=== PATIENT | male | born 1955 | race Hispanic/Latino ===

== ENCOUNTER 2016-07-30 06:43 | Observation (INO) | payer OTHER ==
[2016-07-30] MEDS ORDERED: ECOTRIN PO ONE (07:10)
[2016-07-30] MEDS ORDERED: NACL 0.9% 500 ML 500 ML IV SCH (08:00)
[2016-07-30 08:17] LABS: Basophils % (Auto) 0.6 % (0.0-1.8); Eosinophils % (Auto) 1.5 % (0.0-4.3); Hematocrit 45.3 % (35.5-45.6); Hemoglobin 15.2 gm/dl (11.8-15.2); Mean Corpuscular HGB Conc 34 % (32-34); Mean Corpuscular Hemoglobin 30 pg (28-32); Mean Corpuscular Volume 90 fl (84-94); Platelet Count 262 K/mm3 (140-440); Red Blood Count 5.03 M/mm3 (3.65-5.03); Red Cell Distribution Width 13.5 % (13.2-15.2); White Blood Count 11.1 K/mm3 (4.5-11.0)
[2016-07-30 08:57] LABS: Anion Gap 18 mmol/L; BUN/Creatinine Ratio 14.44; Blood Urea Nitrogen 13 mg/dL (9-20); Calcium 9.7 mg/dL (8.4-10.2); Carbon Dioxide 27 mmol/L (22-30); Chloride 100.5 mmol/L (98-107); Glucose 138 mg/dL (75-100); Potassium 4.8 mmol/L (3.6-5.0); Sodium 141 mmol/L (137-145)
[2016-07-30 09:41] LABS: INR 1.03 (0.87-1.13)
[2016-07-30] MEDS: XYLOCAINE 2% INFILTRATI ONE ×2 (10:16→10:20)
[2016-07-30] MEDS: VERSED ONE ×3 (10:16→11:07)
[2016-07-30] MEDS: SUBLIMAZE ONE ×3 (10:16→11:08)
[2016-07-30] MEDS: CALAN ONE ×2 (10:17→10:22)
[2016-07-30] MEDS: HEPARIN 10,000 UNITS/10 ML ONE ×2 (10:17→10:22)
[2016-07-30] MEDS: HEPARIN/NS 5000 UNIT/500ML(CATH LAB) 1,000 ML IR ONE ×2 (10:18→10:22)
[2016-07-30] MEDS: NITROGLYCERIN SYRINGE 3 ML ONE ×2 (10:18→10:22)
[2016-07-30] MEDS ORDERED: WATER FOR INJ (PF) 10 ML ONE (10:23)
[2016-07-30] MEDS ORDERED: NACL 0.9% 100 ML ONE (10:23)
[2016-07-30] MEDS: ANGIOMAX IV ONE ×2 (10:33→10:34)
[2016-07-30] MEDS ORDERED: ALUM-MAG HYDROX-SIMETH 200-200-20MG/5ML ONE (11:09)
[2016-07-30] MEDS ORDERED: BRILINTA ONE (11:09)
[2016-07-30] MEDS ORDERED: NACL 0.9% 500 ML 500 ML ONE (11:21)
[2016-07-30] MEDS ORDERED: ULTRAM PO PRN (11:41)
[2016-07-30] MEDS ORDERED: NORCO 5/325 PO PRN (11:41)
[2016-07-30] MEDS ORDERED: TYLENOL PO PRN (11:41)
--- NOTE | 2016-07-30 11:47 | Short Stay Summary ---
Short Stay Documentation Date of service: 07/30/16 - History H&P: obtained from office - Allergies and Medications Current Medications: Allergies No Known Allergies Allergy (Verified 12/10/13 11:36) Home Medications Medication Instructions Recorded Confirmed Last Taken Type Omeprazole [PriLOSEC] 1 cap PO DAILY 12/10/13 07/30/16 07/29/16 History Aspirin EC 81 mg PO DAILY 07/30/16 07/30/16 07/28/16 History Isosorbide Mononitrate [Isosorbide 30 mg PO DAILY 07/30/16 07/30/16 07/29/16 History Mononitrate ER] Lisinopril [Lisinopril] 2.5 mg PO DAILY 07/30/16 07/30/16 07/30/16 History Metformin HCl [Metformin HCl] 500 mg PO BID 07/30/16 07/30/16 07/29/16 History Metoprolol Tartrate [Metoprolol 50 mg PO DAILY 07/30/16 07/30/16 07/30/16 History Tartrate] 50mg Active Medications Acetaminophen (Tylenol) 650 mg PO Q4H PRN PRN Reason: Pain MILD(1-3)/Fever >100.5/PEREIRA Acetaminophen/Hydrocodone Bitart ([place] 5/325) 1 each PO Q6H PRN PRN Reason: Pain, Moderate (4-6) Aspirin (Baby Aspirin) 81 mg PO QDAY LUIS FERNANDO Heparin Sodium (Porcine) (Heparin) 5,000 unit SUB-Q Q8HR LUIS FERNANDO Sodium Chloride (Nacl 0.9% 500 Ml) 500 mls @ 50 mls/hr IV DIRECT LUIS FERNANDO Stop: 07/30/16 17:59 Last Admin: 07/30/16 08:28 Dose: 50 mls/hr Ticagrelor (Brilinta) 90 mg PO BID LUIS FERNANDO Tramadol HCl (Ultram) 50 mg PO Q4H PRN PRN Reason: Pain, Mild (1-3) - Brief post op/procedure progress note Date of procedure: 07/30/16 Pre-op diagnosis: unstable angina Procedure: left heart cath and PCI of LCX - Hospital course Hospital course: The patient is a 60 year old male who is followed by Dr. ELVIE Raymond in the office with a history of CAD s/p PCI in 2002, hypertension, diabetes, hyperlipidemia, tobacco abuse who had been experiencing exertional angina despite beta blockers and nitrates and was thus referred for left heart cath. He presented on 07/30/16 and underwent LHC by Dr. Kyle which revealed left main patent, 70% proximal LAD (calcified), D1 patent, 95% proximal LCX, OM3 stent patent, dominant RCA proximal stent patent, mid 40-50%, distal stent patent. He underwent PCI of proximal circumflex lesion with DEBORAH (Resolute 3.5 x 15). He was monitored on telemetry overnight and remained chest pain free and hemodynamically stable. He did develop some mild dyspnea with Brilinta and that has been switched to Effient. He will follow up with [facility] as an outpatient for rotational atherectomy of the LAD. Follow up appointment with Dr. ELVIE Raymond in the [place] office on 08/17/16 at 2:30 pm. - Disposition Condition at discharge: Stable - Discharge Diagnoses (1) S/P PTCA (percutaneous transluminal coronary angioplasty) Status: Acute (2) Unstable angina Status: Resolved (3) CAD (coronary artery disease) Status: Chronic Qualifiers: Coronary Disease-Associated Artery/Lesion type: C [place] vs. transplanted heart: N Associated angina: A (4) Hypertension Status: Chronic Qualifiers: Hypertension type: H (5) Diabetes Status: Chronic Qualifiers: Diabetes mellitus type: D Diabetes mellitus complication status: D Diabetes mellitus complication detail: D Diabetic retinopathy severity: D Proliferative retinopathy type: P Diabetes mellitus macular edema: D Diabetes mellitus long-term insulin use: D Laterality: L Chronic kidney disease stage: C (6) Hyperlipidemia Status: Chronic Qualifiers: Hyperlipidemia type: H (7) Tobacco abuse Status: Chronic Short Stay Discharge Plan Activity: advance as tolerated Weight Bearing Status: Weight Bear as Tolerated Diet: low fat, low cholesterol Wound: keep clean and dry Special Instructions: hold Metformin (resume metformin on 08/01/16) Follow up with: LETHA HERNANDES MD [Primary Care Provider] - 7 Days MARISELA RAYMOND MD [Staff Physician] - 08/17/16 2:30 pm Prescriptions: AtorvaSTATin [Lipitor] 40 mg PO QHS #30 tablet Metoprolol [Lopressor TAB] 25 mg PO BID #60 tablet Prasugrel [Effient] 10 mg PO QDAY #30 tablet
[2016-07-30] MEDS ORDERED: NORCO 5/325 ONE (12:47)
--- NOTE | 2016-07-30 17:37 | Admit Criteria Form ---
Admission Criteria Documentation: TELEMETRY CARE Telemetry Admission Guidelines (Place 'X' for any and all applicable criteria): Admission to telemetry [A] may be indicated for ANY ONE of the following(1)(2)(3 )(4)(5): [X ]I. Cardiac disease, including ANY ONE of the following (9)(10)(11)(12)( 13): [ ]a) Postacute TX [ ]b) Low-risk patients with ST-segment elevation TX who have undergone successful percutaneous coronary intervention [X ]c) Unstable angina [ ]d) Suspected TX (until it is ruled out) [ ]e) Post cardiac surgery (first 48 to 72 hours unless complications occur) [ ]f) Acute arrhythmias (including significant tachycardia or bradycardia) [B] [ ]g) Firing of an implantable cardioverter defibrillator [C] [ ]h) Suspected pacemaker or implantable cardioverter defibrillator malfunction (10) [ ]i) New administration or adjustment of an antiarrhythmic drug [D ] [ ]j) Child admitted for acute congestive heart failure [ ]j) Long QT syndrome [ ]k) Advanced heart block (eg, second-degree Mobitz type II, third- degree heart block) [ ]l) Acute myocarditis or pericarditis [ ]m) Short-term (ambulatory or inpatient) monitoring after a cardiac procedure as indicated by ANY ONE of the following [E]: [ ]i) Electrophysiologic studies [ ]ii) Percutaneous coronary intervention with stent placement [ ]iii) Pacemaker placement with cardiac conduction defect [ ]iv) Implantable cardiac defibrillator placement [ ]II. Drug overdose or poisoning with substance that causes arrhythmias or QT prolongation (eg, phenothiazines, sympathomimetic agents, cyclic antidepressants, digitalis, antiarrhythmic drugs)(15) [ ]III. Short-term (ambulatory or inpatient) monitoring after therapeutic or diagnostic procedure requiring conscious sedation or anesthesia (eg, endoscopy, elective cardioversion) [ ]IV. Acute cerebrovascular even[F](18) [ ]V. Massive blood transfusion (eg, at least 10 units of packed red blood cells in 24 hours) [ ]. Variceal bleeding after endoscopy, sclerotherapy, or IV vasopressin [ ]VII. Uncorrected electrolyte abnormalities associated with an increased risk of dangerous arrhythmia [G]; examples include [ ]a) Hyperkalemia with attributable ECG changes [ ]b) Potassium greater than 6.5 mmol/L (mEq/L) in a patient without history of chronic renal disease [ ]c) Prolonged QT attributed to hypokalemia, hypomagnesemia, or hypocalcemia [ ]VIII.Unexplained syncope or other neurologic event suspected of being due to arrhythmia due to a finding that increases risk; examples include(19)(20)(21): [ ]a) High-risk ECG findings (eg, bifascicular block, bradycardia, abnormal QT interval, ventricular pre- excitation) [ ]b) History of previous syncope due to arrhythmia [ ]c) Abnormal ventricular function (eg, reduced ejection fraction ) [ ]d) Exertional or supine syncope [ ]e) Concerning syncope characteristics (eg, sudden loss of consciousness without prodrome) [ ]f) Family history of sudden [ ]g) Use of arrhythmogenic medication [ ]h) Suspected cardiac ischemia [ ]i) Known channelopathy (eg, long QT syndrome, Brugada syndrome, or catecholaminergic paroxysmal ventricular tachycardia) [ ]j) Known structural heart disease (eg, hypertrophic cardiomyopathy , severe valvular disease) [ ]k) Palpitations preceding syncope The original [employer] content created by [employer] has been revised. The portions of the content which have been revised are identified through the use of italic text or in bold, and [employer] has neither reviewed nor approved the modified material. All other unmodified content is copyright [employer] Please see references footnoted in the original [employer] edition 2016 Admission Criteria Met: Yes
[2016-07-30] MEDS: NACL 0.9% 1000 ML 1,000 ML IV SCH (18:00)
--- NOTE | 2016-07-30 21:19 | Cardiac Catherization Report ---
LEFT HEART CATHETERIZATION/PERCUTANEOUS CORONARY INTERVENTION/INTRAVASCULAR ULTRASOUND/FRACTIONAL FLOW RESERVE CLINICAL INFORMATION: This is a 60-year-old gentleman who is a smoker has hypertension, diabetes, cholesterol, known coronary artery disease, had Taxus stents put in the circumflex in 2002, presents with exertional anginal symptoms despite being on beta blockers and nitrates, Willacy classification 2-3 with left arm pain. He is having worsening anginal symptoms with exertion, is here for a left heart catheterization. Left heart catheterization performed via the right radial artery, sterile technique, local anesthesia, 6-Vietnamese radial sheath inserted. Left system following findings was engaged with a JL3.5 catheter, 5-Vietnamese catheter. FINDINGS: Left main is large and patent. LAD is a large caliber vessel, proximal has a calcified focal 78% lesion eccentric. Diagonal 1 is a medium caliber vessel, patent. Rest of the LAD is a medium to large caliber vessel that is patent. Circumflex, OM1 and OM2 are small vessels. The proximal/mid circ has a focal 95% lesion prior to going into an OM3 stent that is patent with multiple branches with mild luminal irregularities. RCA engaged with JR4, is a dominant vessel. Proximal stent is patent, mid at the crux is a diffuse 40-50% lesion, distal stent patent, bifurcates into a medium caliber PDA and PLV with multiple branches that are patent with mild luminal irregularities. The caliber size of the RCA is large. LV gram done in the BULGARIAN and VILLELA view shows normal LV function, EF 55-60%, LVEDP 90 mmHg, LV is 130, aortic is 120/67, mild gradient across the aortic valve. So, in view of an eccentric and calcified LAD lesion, engaged the LAD with EBU 3.5 guiding catheter, passed a Williams wire in distal LAD, unable to get the IVUS catheter past the lesion up to the lesion, calcified as 35 mm MLA noted, but calcified, unable to go pass it, so removed the Williams wire and IVUS and wired with an FFF wire after equalization, gave IV adenosine for 2 minutes and it was significant 0.77, removed the FFF wire. Continued CAMACHO 3 flow, but calcified vessel. PERCUTANEOUS CORONARY INTERVENTION of circumflex/INTRAVASCULAR ULTRASOUND; 1. The circ with a Williams wire, ballooned with a 2.5 x 10 balloon mm at 10 atmospheres. 2. Stented the circ going into the OM 3 stent with a drug-eluting Resolute 3.5 x 15 at 12 atmospheres. 3. Postdilated the mid to distal portion of the stent with a noncompliant 3.5 x at 12 at 15 atmospheres. 4. Excellent angiographic result. Intravascular ultrasound of the circumflex also shows stent well opposed and expanded. 5. Removed the Williams wire and IVUS and repeat angiogram CAMACHO 3 flow, continued the LAD and circumflex. No dissection. Good stent apposition, expansion and proximal circ and OM3. LAD eccentric calcified proximal 70% lesion. 6. A 6-Vietnamese guiding catheter taken over guidewire, 6-Vietnamese radial sheath was discontinued. Radial dressing applied. No hematoma. No bleeding. SUMMARY: 1. Successful PCI/intravascular ultrasound of the proximal circ with a drug-eluting Resolute 3.5 x 15 postdilated with 3.5 x 12 noncompliant overlapping with OM3 stent is wildly patent. 2. Left main patent, LAD eccentric, proximal 70% lesion with intravascular ultrasound showed calcified vessel with excellent flow reserve of 0.77. The patient as an outpatient will be transferred to [place] for rotational ____ LAD. 3. RCA, proximal and distal stent patent, but the crux at mid section had 40-50% vessel. 4. The patient was counseled about smoking cessation. Continue aspirin, start a load of Brilinta 90 b.i.d., continue statin medication. Hold metformin 48 hours and 6-Vietnamese radial dressing was applied. No hematoma, no bleeding. JOB# [id number] MISAEL/DIANNE
[2016-07-30] MEDS: HEPARIN SUB-Q SCH (22:00)
[2016-07-30] MEDS ORDERED: BRILINTA PO SCH (22:00)
[2016-07-30] MEDS ORDERED: PROTONIX PO SCH (22:00)
[2016-07-30] MEDS: LOPRESSOR PO SCH (22:01)
[2016-07-31] MEDS: NACL 0.9% 1000 ML 1,000 ML IV SCH (03:12)
[2016-07-31 07:02] LABS: Basophils % (Auto) 0.7 % (0.0-1.8); Eosinophils % (Auto) 2.7 % (0.0-4.3); Hematocrit 41.3 % (35.5-45.6); Hemoglobin 13.8 gm/dl (11.8-15.2); Mean Corpuscular HGB Conc 33 % (32-34); Mean Corpuscular Hemoglobin 30 pg (28-32); Mean Corpuscular Volume 90 fl (84-94); Platelet Count 226 K/mm3 (140-440); Red Blood Count 4.58 M/mm3 (3.65-5.03); Red Cell Distribution Width 13.2 % (13.2-15.2); White Blood Count 9.5 K/mm3 (4.5-11.0)
[2016-07-31] MEDS: HEPARIN SUB-Q SCH (07:04)
[2016-07-31 07:06] LABS: Creatine Kinase MB 1.9 ng/mL (0.0-4.0)
[2016-07-31 07:10] LABS: Anion Gap 15 mmol/L; BUN/Creatinine Ratio 11.11; Blood Urea Nitrogen 10 mg/dL (9-20); Calcium 8.9 mg/dL (8.4-10.2); Carbon Dioxide 26 mmol/L (22-30); Chloride 103.3 mmol/L (98-107); Creatine Kinase 48 units/L (55-170); Glucose 119 mg/dL (75-100); Potassium 4.6 mmol/L (3.6-5.0); Sodium 140 mmol/L (137-145)
--- NOTE | 2016-07-31 08:09 | XRay Report ---
AP CHEST: HISTORY: chest pain AP view of the chest demonstrates a normal mediastinal and cardiac contour with clear lungs and normal bony and soft tissue structures. IMPRESSION: Unremarkable AP chest.
[2016-07-31 09:36] VITALS: BP 116/75
[2016-07-31] MEDS ORDERED: IMDUR PO SCH (10:00)
[2016-07-31] MEDS ORDERED: BABY ASPIRIN PO SCH (10:00)
[2016-07-31] MEDS ORDERED: PROTONIX PO SCH ×2 (10:00→22:00)
[2016-07-31] MEDS ORDERED: EFFIENT PO SCH (10:00)
[2016-07-31] MEDS ORDERED: ZESTRIL PO SCH (10:00)
[2016-07-31] MEDS: LOPRESSOR PO SCH (11:00)
== END 2016-07-31 12:15 | disposition home or self-care (01) ==
LOC: OPU 06:43 → 4A 11:41
PROVIDERS: ADMIT Internal Medicine; ATTEND Internal Medicine
DX: I25.10 Atherosclerotic heart disease of native coronary artery without angina pectoris (principal); E78.4 Other hyperlipidemia; I10 Essential (primary) hypertension; E11.9 Type 2 diabetes mellitus without complications; I25.2 Old myocardial infarction; M79.602 Pain in left arm; F17.210 Nicotine dependence, cigarettes, uncomplicated; Z98.61 Coronary angioplasty status
CPT/HCPCS: 36415; 71010; 80048; 82550; 82553; 82962; 84484; 85025; 85347; 85610; 85730; 92978; 93005; 93010; 93458; 93571; 96372; 99406; C1725; C1753; C1769; C1874; C1887; C1894; C9600; G0378; J0153; J0583; J1644; J2250; J3010; J7030; J7040; 92928; Q9967